=== PATIENT | female | born 1955 | race Caucasian/White ===

== ENCOUNTER 2016-11-20 18:06 | Emergency (ER) | payer SELFPAY ==
[~2016-11-20] VITALS: Ht 162.6 cm; Wt 62.0 kg
[2016-11-20] MEDS ORDERED: BUPIVACAINE 0.25% INFIL ONE (18:30)
[2016-11-20] MEDS ORDERED: PLEASE ENTER HEIGHT AND WEIGHT MC SCH (18:30)
[2016-11-20] MEDS ORDERED: LIDOCAINE 1%, 10ML INFIL ONE (18:30)
[2016-11-20] MEDS ORDERED: CEFAZOLIN PMX 1GM/50ML 50 ML IV ONE (19:00)
[2016-11-20] MEDS ORDERED: CEFAZOLIN PMX 1GM/50ML 50 ML ONE (19:41)
[2016-11-20] MEDS ORDERED: BACITRACIN ZINC OINT 500U/GM, 0.9 GM ONE (20:34)
[2016-11-20] MEDS ORDERED: LIDOCAINE 1%, 20ML ONE (20:53)
[2016-11-20] MEDS ORDERED: BUPIVACAINE 0.25% ONE (20:53)
[2016-11-20 21:05] VITALS: BP 133/54
[2016-11-20] MEDS ORDERED: DIPH,PERTUSS(ACELL),TET VAC/PF 0.5 ML IM-VACC ONE ×2 (21:11→21:30)
[2016-11-20] MEDS ORDERED: methylPREDNISolone SOD SUCC 125 MG/2 ML ONE (22:08)
== END 2016-11-20 21:49 | disposition home or self-care (01) ==
LOC: ED 21:45
DX: S62.603B Fracture of unspecified phalanx of left middle finger, initial encounter for open fracture (principal); S91.119A Laceration without foreign body of unspecified toe without damage to nail, initial encounter; W23.0XXA Caught, crushed, jammed, or pinched between moving objects, initial encounter; Y93.89 Activity, other specified; Y92.009 Unspecified place in unspecified non-institutional (private) residence as the place of occurrence of the external cause; Y99.8 Other external cause status
CPT/HCPCS: 13120; 29130; 73140; 90471; 90715; 96365; 99284; J0690